=== PATIENT | female | born 1955 | race African-American/Black ===

== ENCOUNTER 2024-02-16 10:31 | Outpatient (CLI) | payer MEDICARE ==
[2024-02-16 11:52] LABS: Hematocrit 40.6 % (34.9-44.5); Hemoglobin 13.6 g/dL (12.0-15.5); Mean Corpuscular HGB CONC 33.5 g/dL (32.0-36.0); Mean Corpuscular Hemoglobin 29.8 pg (27.0-33.0); Mean Platelet Volume 10.4 fl (7.4-10.4); Platelet Count 257 10x3/uL (150-450); RBC Distribution Width 14.1 % (11.5-14.5); Red Blood Cell (RBC) Count 4.56 10x6/uL (3.90-5.03); White Blood Cell (WBC) Count 4.1 10x3/uL (3.5-10.5)
[2024-02-16 12:11] LABS: Anion Gap 13 mmol/L (10-20); BUN (Urea Nitrogen) 21 mg/dL (9.8-20.1); Calc. Creatinine Clearance 0 mL/min (70-130); Calcium 10.8 mg/dL (7.8-10.44); Carbon Dioxide 27 mmol/L (23-31); Chloride 102 mmol/L (98-107); Estimated GFR 59; Glucose 99 mg/dL (80-115); Potassium 3.5 mmol/L (3.5-5.1); Sodium 138 mmol/L (136-145)
== END 2024-02-16 10:32 | disposition home or self-care (01) ==
LOC: CSHLAB 10:31
PROVIDERS: ATTEND Otolaryngology Otolaryngic Allergy
DX: Z01.818 Encounter for other preprocedural examination (principal)
CPT/HCPCS: 80048; 85027; 93005; 93010

== ENCOUNTER 2024-07-09 08:58 | Day surgery (SDC) | payer MEDICARE ==
[2024-07-04 09:47] VITALS: BMI 31.7
[2024-07-09] MEDS ORDERED: Dexamethasone 20 MG/5 ML VIAL ONE (10:02)
[2024-07-09] MEDS ORDERED: Lidocaine 1% PF 5 ML VIAL ONE (10:02)
[2024-07-09] MEDS ORDERED: fentaNYL 50 mcg/mL 1 mL Vial ONE (10:02)
[2024-07-09] MEDS ORDERED: Rocuronium Bromide 10 MG/ML (10ML VIAL) ONE (10:02)
[2024-07-09] MEDS ORDERED: Midazolam HCl 2 mg/2 ml Vial ONE (10:02)
[2024-07-09] MEDS ORDERED: Ondansetron PF 4 MG/2 ML Vial ONE (10:02)
[2024-07-09] MEDS ORDERED: PROPOFOL 20 ML ONE (10:02)
[2024-07-09] MEDS ORDERED: CEFAZOLIN 2 GM VIAL ONE (10:50)
[2024-07-09] MEDS ORDERED: EPINEPHrine 1 MG/ML AMP ONE (11:34)
== END 2024-07-09 14:10 | disposition home or self-care (01) ==
LOC: CSHSDC 08:58
PROVIDERS: ATTEND Otolaryngology Otolaryngic Allergy
PROC: 0GTR0ZZ Resection of Parathyroid Gland, Open Approach (ICD-10-PCS; principal; 2024-07-09)
DX: E21.3 Hyperparathyroidism, unspecified (principal); I10 Essential (primary) hypertension; F41.9 Anxiety disorder, unspecified; F32.A Depression, unspecified; E78.5 Hyperlipidemia, unspecified; E11.9 Type 2 diabetes mellitus without complications; K21.9 Gastro-esophageal reflux disease without esophagitis; Z85.3 Personal history of malignant neoplasm of breast; Z79.82 Long term (current) use of aspirin; Z79.899 Other long term (current) drug therapy; Z79.84 Long term (current) use of oral hypoglycemic drugs; Z98.890 Other specified postprocedural states
CPT/HCPCS: 60500; 83970; J1100; J2250; J2405; J2704; J3010; 36415; 88305; 88331; J0171